=== PATIENT | male | born 1975 | race Hispanic/Latino ===

== ENCOUNTER 2024-07-12 07:44 | Observation (INO) | payer BC ==
[2024-07-07 10:39] VITALS: BMI 35.4
[2024-07-12] MEDS ORDERED: Lidocaine 1% PF 5 ML VIAL ONE (09:22)
[2024-07-12] MEDS ORDERED: PROPOFOL 20 ML ONE (09:22)
[2024-07-12] MEDS ORDERED: Ketorolac Tromethamine 30 MG (1 mL) VIAL ONE ×2 (09:26→11:43)
[2024-07-12] MEDS ORDERED: SUGAMMADEX SODIUM 200 MG/2 ML VIAL ONE (09:28)
[2024-07-12] MEDS ORDERED: Bupivacaine/Epinephrine 0.25% 30 ML VIAL ONE ×2 (09:33→09:45)
[2024-07-12] MEDS ORDERED: fentaNYL 50 mcg/mL 1 mL Vial ONE ×3 (09:35→13:27)
[2024-07-12] MEDS ORDERED: Propofol 1,000 MG/100 ML VIAL IV ONE (09:42)
[2024-07-12] MEDS ORDERED: Sevoflurane 250 ML INH ANEST BOTTLE ONE (09:42)
[2024-07-12] MEDS ORDERED: CEFAZOLIN 2 GM VIAL ONE (10:01)
[2024-07-12] MEDS ORDERED: Dexamethasone 20 MG/5 ML VIAL ONE (10:35)
[2024-07-12] MEDS ORDERED: Ondansetron PF 4 MG/2 ML Vial ONE (11:42)
[2024-07-12] MEDS ORDERED: Acetaminophen 500 MG TAB ONE (14:01)
[2024-07-12] MEDS ORDERED: Glucagon 1 MG/ML KIT IM PRN (14:03)
[2024-07-12] MEDS ORDERED: Dextrose 50% Abboject 50 ML SYRINGE SLOW IVP PRN (14:03)
[2024-07-12] MEDS ORDERED: hydrALAZINE 20 MG/ML VIAL SLOW IVP PRN (14:03)
[2024-07-12] MEDS ORDERED: Promethazine HCl 25 MG/ML VIAL IM PRN (14:03)
[2024-07-12] MEDS ORDERED: Dextrose 5% in Water 1,000 ML IV PRN (14:03)
[2024-07-12] MEDS ORDERED: Ipratropium/Albuterol 3 ML NEB NEB PRN (14:03)
[2024-07-12] MEDS ORDERED: Ondansetron PF 4 MG/2 ML Vial IVP PRN (14:03)
[2024-07-12] MEDS ORDERED: oxyCODONE 5 MG TAB PO PRN (14:03)
[2024-07-12] MEDS ORDERED: fentaNYL 50 mcg/mL 1 mL Vial SLOW IVP PRN (15:51)
[2024-07-12] MEDS: Acetaminophen 325 MG TAB PO SCH ×2 (17:39→21:07)
[2024-07-12] MEDS: Ketorolac Tromethamine 30 MG (1 mL) VIAL IVP SCH (17:40)
[2024-07-12] MEDS: D5 1/2 NS w/20 mEq KCL 1,000 ML IV SCH (18:08)
[2024-07-13] MEDS: Levothyroxine Sodium 100 MCG TAB PO SCH (05:22)
[2024-07-13 07:27] VITALS: BP 116/68
[2024-07-13 07:30] VITALS: TEMP 97.3
[2024-07-13] MEDS: Enoxaparin 40 MG (0.4 mL) SYRINGE SC SCH (08:33)
[2024-07-13] MEDS: Pantoprazole DR 40 MG TAB PO SCH (08:33)
== END 2024-07-13 11:07 | disposition home or self-care (01) ==
LOC: CSHSDC 07:44 → CSHTELE 14:04
PROVIDERS: ADMIT Surgery; ATTEND Surgery
PROC: 0BQT4ZZ Repair Diaphragm, Percutaneous Endoscopic Approach (ICD-10-PCS; principal; 2024-07-13)
PROC: 0DP64CZ Removal of Extraluminal Device from Stomach, Percutaneous Endoscopic Approach (ICD-10-PCS; 2024-07-13)
DX: K44.9 Diaphragmatic hernia without obstruction or gangrene (principal); R13.10 Dysphagia, unspecified; E03.9 Hypothyroidism, unspecified; K21.9 Gastro-esophageal reflux disease without esophagitis; Z79.899 Other long term (current) drug therapy; Z98.890 Other specified postprocedural states; F17.290 Nicotine dependence, other tobacco product, uncomplicated; Z79.890 Hormone replacement therapy; Z79.85 Long-term (current) use of injectable non-insulin antidiabetic drugs
CPT/HCPCS: 94762; J1100; J1650; J1885; J2405; J2704; J3010; J3480